=== PATIENT | female | born 1945 | race Two or more races ===

== ENCOUNTER 2024-10-14 21:30 | Inpatient (IN) | payer BC, MEDICARE ==
[~2024-10-14] VITALS: Ht 170.2 cm; Wt 79.4 kg
[2024-10-14] MEDS ORDERED: diphenhydrAMINE 50 MG/1 ML VIAL ONE (21:43)
[2024-10-14] MEDS: diphenhydrAMINE 50 MG/1 ML VIAL IV ONE (21:46)
[2024-10-14] MEDS ORDERED: METOCLOPRAMIDE HCL 10 MG/2 ML VIAL ONE (21:54)
[2024-10-14] MEDS ORDERED: MORPHINE SULFATE 2 MG/1 ML DISP.SYRIN ONE (21:55)
[2024-10-14] MEDS ORDERED: PANT40TA49 PO (22:00)
[2024-10-14] MEDS ORDERED: ACET-3117 PO (22:00)
[2024-10-14] MEDS ORDERED: DULA0.75 SQ (22:00)
[2024-10-14] MEDS ORDERED: SERT-439 PO (22:00)
[2024-10-14] MEDS ORDERED: TRAZ-182 PO (22:00)
[2024-10-14] MEDS ORDERED: LOSA100T31 PO (22:00)
[2024-10-14] MEDS: MORPHINE SULFATE 2 MG/1 ML DISP.SYRIN IV ONE (22:00)
[2024-10-14] MEDS ORDERED: CEFP200T14 PO (22:00)
[2024-10-14] MEDS ORDERED: ONDA4TAB5 PO (22:00)
[2024-10-14] MEDS: METOCLOPRAMIDE HCL 10 MG/2 ML VIAL IV ONE (22:00)
[2024-10-14] MEDS ORDERED: GABA300C PO (22:00)
[2024-10-14] MEDS: IV LACTATED RINGERS SOLUTION 1,000 ML IV ONE (22:20)
[2024-10-14 22:24] LABS: PLATELET COUNT (AUTO) 268 K/uL (179-408); RED BLOOD CELL COUNT(AUTO) 4.24 MIL/uL (3.63-4.92); RED CELL DISTRIBUTION WIDTH 14.2 % (12.3-17.7); WHITE BLOOD COUNT (AUTO) 13.7 K/uL (3.8-11.8)
[2024-10-14 22:33] LABS: CREATININE 1.1 mg/dL (0.6-1.3); SODIUM SERUM 142 mmol/L (136-145); UREA NITROGEN, BLOOD 19 mg/dL (7-18)
[2024-10-14 22:39] LABS: ASPARTATE AMINOTRANSFERASE 12 U/L (15-37); TOTAL PROTEIN, SERUM 8.1 g/dL (6.4-8.2)
[2024-10-14] MEDS ORDERED: PIPERACILLIN/TAZOBACTAM/D5W 50 ML IV ONE (23:09)
[2024-10-14] MEDS: PIPERACILLIN SODIUM/TAZOBACTAM 3.375 G in IV DEXTROSE 5% 50 ML IV ONE (23:16)
[2024-10-14 23:29] LABS: LACTIC ACID 3.9 mmol/L (0.4-2.0)
[2024-10-14] MEDS ORDERED: ACETAMINOPHEN 325 MG TABLET PO PRN (23:45)
[2024-10-14] MEDS ORDERED: REMEDY ESSENTIAL ZINC PASTE 113 GM TP PRN (23:45)
[2024-10-14] MEDS ORDERED: IV NS 1000 ML 1,000 ML IV SCH (23:45)
[2024-10-14] MEDS ORDERED: ENOXAPARIN SODIUM 40 MG/0.4 ML DISP.SYRIN SQ SCH (23:45)
[2024-10-14] MEDS ORDERED: MAGNESIUM HYDROXIDE 30 ML LIQUID UDC PO PRN (23:45)
[2024-10-14] MEDS ORDERED: ONDANSETRON 4 MG/2 ML VIAL IV PRN (23:45)
[2024-10-14] MEDS: IV NORMAL SALINE 1000 ML BAG IV ONE (23:53)
[2024-10-15 04:00] VITALS: BP 144/73
[2024-10-15] MEDS ORDERED: PIPERACILLIN SODIUM/TAZOBACTAM 3.375 G in IV DEXTROSE 5% 50 ML IV SCH (06:00)
[2024-10-15 06:46] LABS: PLATELET COUNT (AUTO) 215 K/uL (179-408); RED BLOOD CELL COUNT(AUTO) 3.44 MIL/uL (3.63-4.92); RED CELL DISTRIBUTION WIDTH 14.3 % (12.3-17.7); WHITE BLOOD COUNT (AUTO) 10.0 K/uL (3.8-11.8)
[2024-10-15 06:57] LABS: CREATININE 1.0 mg/dL (0.6-1.3); SODIUM SERUM 144 mmol/L (136-145); UREA NITROGEN, BLOOD 16 mg/dL (7-18)
[2024-10-15 07:53] VITALS: BP 113/54; TEMP 97.7; O2SAT 93
[2024-10-15] MEDS ORDERED: IV NS 1000 ML 1,000 ML IV PRN (08:43)
[2024-10-15] MEDS: PIPERACILLIN SODIUM/TAZOBACTAM 3.375 G in IV DEXTROSE 5% 100 ML IV SCH (08:52)
[2024-10-15] MEDS: PANTOPRAZOLE SODIUM 40 MG VIAL IV SCH (08:53)
[2024-10-15] MEDS: ENOXAPARIN SODIUM 40 MG/0.4 ML DISP.SYRIN SQ SCH (08:54)
[2024-10-15] MEDS ORDERED: DIATR MEGLU/DIATRIZOATE SODIUM 120 ML BOTTLE ONE (09:23)
[2024-10-15] MEDS ORDERED: ONDA4TAB11 PO (11:10)
[2024-10-15] MEDS ORDERED: [UNRECOGNIZED DRUG - CODE] PO (11:11)
[2024-10-15] MEDS ORDERED: SODI650T PO (11:12)
[2024-10-15] MEDS ORDERED: GEMF600T90 PO (11:12)
[2024-10-15] MEDS ORDERED: PROP10DR4 EACHEYE (11:13)
[2024-10-15] MEDS ORDERED: METF-442 PO (11:14)
[2024-10-15] MEDS ORDERED: GABA600T PO (11:16)
[2024-10-15 16:02] VITALS: BP 116/61; TEMP 97.7; O2SAT 98
[2024-10-15] MEDS: IV D5 1/2 NS 1000 ML 1,000 ML IV PRN (18:00)
[2024-10-15 19:40] VITALS: BP 112/64; TEMP 98.5; O2SAT 96
[2024-10-15] MEDS: MORPHINE SULFATE 2 MG/1 ML DISP.SYRIN IV PRN (20:32)
[2024-10-16 00:18] VITALS: BP 147/70; TEMP 98.6; O2SAT 95
[2024-10-16 04:11] VITALS: BP 148/71; TEMP 98.5; O2SAT 95
[2024-10-16 06:56] LABS: PLATELET COUNT (AUTO) 192 K/uL (179-408); RED BLOOD CELL COUNT(AUTO) 3.40 MIL/uL (3.63-4.92); RED CELL DISTRIBUTION WIDTH 13.9 % (12.3-17.7); WHITE BLOOD COUNT (AUTO) 6.7 K/uL (3.8-11.8)
[2024-10-16 07:06] LABS: CREATININE 0.7 mg/dL (0.6-1.3); SODIUM SERUM 142 mmol/L (136-145); UREA NITROGEN, BLOOD 13 mg/dL (7-18)
[2024-10-16] MEDS: PANTOPRAZOLE SODIUM 40 MG TABLET.DR PO SCH (08:54)
[2024-10-16] MEDS: HEPARIN SODIUM,PORCINE 5,000 UNITS/ML VIAL SQ SCH (08:55)
[2024-10-16] MEDS ORDERED: POTASSIUM CHLORIDE 20 MEQ POWDER PACKET PO ONE (11:00)
== END 2024-10-16 09:30 | disposition home or self-care (01) | DRG 389 ==
LOC: ER 22:05 → TELE3 10-15 00:10
PROVIDERS: ADMIT Registered Nurse Psychiatric/Mental Health; ATTEND Nurse Practitioner Family
PROC: 0D9670Z Drainage of Stomach with Drainage Device, Via Natural or Artificial Opening (ICD-10-PCS; principal; 2024-10-15)
DX: K56.609 Unspecified intestinal obstruction, unspecified as to partial versus complete obstruction (principal); E87.20 Acidosis, unspecified; R73.03 Prediabetes; D64.9 Anemia, unspecified; E87.6 Hypokalemia; D72.829 Elevated white blood cell count, unspecified; F32.A Depression, unspecified; I10 Essential (primary) hypertension; Z90.710 Acquired absence of both cervix and uterus; Z85.43 Personal history of malignant neoplasm of ovary; Z92.3 Personal history of irradiation; Z90.49 Acquired absence of other specified parts of digestive tract; K21.9 Gastro-esophageal reflux disease without esophagitis; Z79.85 Long-term (current) use of injectable non-insulin antidiabetic drugs; Z79.899 Other long term (current) drug therapy; R79.89 Other specified abnormal findings of blood chemistry
CPT/HCPCS: 36415; 71045; 74018; 74250; 83605; 83690; 83735; 84100; 85025; 85610; 85730; 86850; 86900; 86901; 87040; 93005; G0378; J1200; J1644; J1650; J2270; J2470; J2543; J2765; J7040; J7120; Q9963